=== PATIENT | male | born 1995 | race Two or more races ===

== ENCOUNTER 2019-12-09 11:39 | Emergency (ER) | payer SELFPAY ==
[~2019-12-09] VITALS: Ht 180.3 cm; Wt 63.0 kg
[2019-12-09] MEDS ORDERED: KETOROLAC 30MG/ML VIAL IV STA (12:24)
[2019-12-09 13:01] VITALS: BP 123/67
== END 2019-12-09 13:41 | disposition home or self-care (01) ==
LOC: ER 11:39
DX: K08.89 Other specified disorders of teeth and supporting structures (principal); F12.10 Cannabis abuse, uncomplicated
CPT/HCPCS: 96374; 99283; J1885

== ENCOUNTER 2019-12-09 14:38 | Inpatient (IN) | payer MEDICAID, OTHER ==
[~2019-12-09] VITALS: Ht 172.7 cm; Wt 74.8 kg
[2019-12-09] MEDS ORDERED: DIPHENHYDRAMINE 50MG/ML VIAL IM STA (15:40)
[2019-12-09] MEDS ORDERED: HALOPERIDOL LACTATE 5MG/ML VIAL IM STA (15:40)
[2019-12-09 16:13] LABS: BASOPHILS % 0.5 % (0.0-2.0); EOSINOPHILS % 0.1 % (0.0-5.0); HEMATOCRIT. 47.4 % (42.0-52.0); HEMOGLOBIN. 16.2 g/dL (14.0-18.0); LYMPHOCYTES % 17.1 % (20.0-50.0); MEAN CORPUSCULAR HEMOGLOBIN 27.5 pg (28.0-32.0); MEAN CORPUSCULAR VOLUME 80.7 fL (80.0-94.0); MONOCYTES % 8.2 % (2.0-8.0); NEUTROPHILS % 74.1 % (40.0-76.0); PLATELET 212 x1000/uL (130-400); RED BLOOD CELL COUNT 5.88 mill/uL (4.7-6.1); RED CELL DISTRIBUTION WIDTH 13.5 % (11.6-14.6)
[2019-12-09 16:18] LABS: CHLORIDE 103 mEq/L (98-107)
[2019-12-09 16:18] LABS: BG BASE EXCESS -0.3 mmol/L (-2.0-2.0); BG CARBOXYHEMOGLOBIN 0.1 % (0.5-1.5); BG DEOXYHEMOGLOBIN 3.5 % (0.0-5.0); BG FRACTION INSPIRED OXYGEN 21; BG HCO3 ACT 23.8 mmol/L (22.0-26.0); BG METHEMOGLOBIN 0.2 % (0.0-1.5); BG OXYGEN SATURATION 96.5 % (92.0-98.5); BG OXYHEMOGLOBIN 96.2 % (94.0-97.0); BG PCO2 37.7 mmHg (35.0-45.0); BG PH 7.419 (7.350-7.450); BG SAMPLE SITE RIGHT RADIAL; BG TOTAL HEMOGLOBIN 15.7 g/dL (12.0-18.0); BG VENT MODE ROOM AIR
[2019-12-09 16:23] LABS: ETHANOL BLOOD < 10 mg/dL
[2019-12-09 16:50] LABS: CLARITY URINE CLEAR (CLEAR); COLOR URINE YELLOW (YELLOW); KETONES URINE NEGATIVE (NEGATIVE); LEUKOCYTE ESTERASE URINE NEGATIVE (NEGATIVE); NITRITE URINE NEGATIVE (NEGATIVE); OCCULT BLOOD URINE 2+ (NEGATIVE); PH URINE 7.5 (4.5-8.0); PROTEIN URINE NEGATIVE (NEGATIVE); SPECIFIC GRAVITY URINE 1.011 (1.005-1.030)
[2019-12-09 17:18] LABS: *AMPHETAMINES SCREEN URINE NEGATIVE (NEGATIVE); *BARBITURATES SCREEN URINE NEGATIVE (NEGATIVE)
[2019-12-09 17:19] LABS: *BENZODIAZEPINES SCREEN URINE NEGATIVE (NEGATIVE); *COCAINE SCREEN URINE NEGATIVE (NEGATIVE); CANNABINOID URINE SCREEN NEGATIVE (NEGATIVE); METHADONE URINE SCREEN NEGATIVE (NEGATIVE); OPIATES URINE SCREEN NEGATIVE (NEGATIVE); PHENCYCLIDINE URINE SCREEN NEGATIVE (NEGATIVE)
[2019-12-09] MEDS ORDERED: SODIUM CHLORIDE 0.9% 1,000 ML IV ONE (22:16)
[2019-12-09 23:19] LABS: CREATINE KINASE 3368 IU/L (39-308)
[2019-12-10] MEDS ORDERED: SODIUM CHLORIDE 0.9% 1,000 ML IV ONE ×3 (00:07→07:14)
[2019-12-10 05:53] LABS: CREATINE KINASE 6755 IU/L (39-308)
[2019-12-10] MEDS ORDERED: HALOPERIDOL LACTATE 5MG/ML VIAL IM ONE (07:15)
[2019-12-10] MEDS ORDERED: DIPHENHYDRAMINE 50MG/ML VIAL IV ONE (07:15)
[2019-12-10] MEDS ORDERED: LORAZEPAM 2MG/ML CPJ IV ONE (09:30)
[2019-12-10] MEDS: SODIUM CHLORIDE 0.9% 1,000 ML IV SCH ×2 (11:00→15:51)
[2019-12-10] MEDS ORDERED: ACETAMINOPHEN 325MG TABLET PO PRN (11:00)
[2019-12-10] MEDS ORDERED: ONDANSETRON HCL 4MG/2ML INJ IV PRN (11:00)
[2019-12-10] MEDS ORDERED: CLONIDINE 0.1MG TABLET PO PRN (11:00)
[2019-12-10] MEDS ORDERED: LORAZEPAM 2MG/ML CPJ IV PRN (11:00)
[2019-12-10] MEDS ORDERED: MAGNESIUM/ALUMINUM HYDROXIDE/SIMETHICONE 30ML UDC PO PRN (11:00)
[2019-12-10 20:49] LABS: CREATINE KINASE 4638 IU/L (39-308)
[2019-12-10 22:00] VITALS: BP 121/61
[2019-12-11 00:16] VITALS: BP 120/65
[2019-12-11 03:07] VITALS: BP 134/66
[2019-12-11 04:00] VITALS: BP 122/74
[2019-12-11] MEDS: SODIUM CHLORIDE 0.9% 1,000 ML IV SCH (07:00)
[2019-12-11 08:00] VITALS: BP 131/77
[2019-12-11] MEDS ORDERED: PNEUMOCOCCAL 23-VAL P-SAC VAC 0.5 ML IM ONE (08:00)
[2019-12-11] MEDS ORDERED: OLANZAPINE 10MG TABLET PO SCH (09:30)
[2019-12-11] MEDS ORDERED: HALOPERIDOL LACTATE 5MG/ML VIAL IM PRN (09:30)
[2019-12-11] MEDS ORDERED: INFLUENZA VIRUS VACCINE(AFLURIA) 0.5ML SYR IM ONE (10:00)
[2019-12-11] MEDS ORDERED: CEFAZOLIN 1000MG PREMIX 50 ML IV SCH (11:00)
[2019-12-11] MEDS ORDERED: HALOPERIDOL LACTATE 5MG/ML VIAL IM NR (12:15)
== END 2019-12-11 16:15 | DRG 52 ==
LOC: ER 14:38 → EDBEDREQSVC 12-10 06:40 → EDBEDREQ 12-10 09:26 → ENRESERV 12-10 20:15 → 7WST 12-10 21:24
PROVIDERS: ADMIT Hospitalist; ATTEND Hospitalist
DX: G93.40 Encephalopathy, unspecified (principal); F20.9 Schizophrenia, unspecified; M62.82 Rhabdomyolysis; K08.89 Other specified disorders of teeth and supporting structures; R00.0 Tachycardia, unspecified; F29 Unspecified psychosis not due to a substance or known physiological condition; F32.9 Major depressive disorder, single episode, unspecified; Z59.0 Homelessness; Z91.5 Personal history of self-harm; Z78.1 Physical restraint status; Z56.0 Unemployment, unspecified
CPT/HCPCS: 36415; 36600; 80053; 80305; 80307; 80320; 80329; 81003; 82375; 82550; 82805; 85025; 90686; 90732; 99285; J0690; J1200; J1630; J2060; J7030; G0480

== ENCOUNTER 2019-12-11 17:13 | Inpatient (IN) | payer SELFPAY ==
[~2019-12-11] VITALS: Ht 172.7 cm; Wt 74.8 kg
[2019-12-11] MEDS ORDERED: SODIUM CHLORIDE 0.9% 1,000 ML IV ONE (17:28)
[2019-12-11 17:54] LABS: BASOPHILS % 0.8 % (0.0-2.0); CHLORIDE 103 mEq/L (98-107); EOSINOPHILS % 1.8 % (0.0-5.0); HEMATOCRIT. 44.4 % (42.0-52.0); HEMOGLOBIN. 15.1 g/dL (14.0-18.0); LYMPHOCYTES % 33.4 % (20.0-50.0); MEAN CORPUSCULAR HEMOGLOBIN 27.1 pg (28.0-32.0); MEAN CORPUSCULAR VOLUME 79.5 fL (80.0-94.0); MONOCYTES % 11.4 % (2.0-8.0); NEUTROPHILS % 52.6 % (40.0-76.0); PLATELET 197 x1000/uL (130-400); RED BLOOD CELL COUNT 5.58 mill/uL (4.7-6.1); RED CELL DISTRIBUTION WIDTH 13.2 % (11.6-14.6)
[2019-12-11 17:57] LABS: PROTHROMBIN TIME 10.7 sec (9.6-11.0)
[2019-12-11 17:58] LABS: ETHANOL BLOOD < 10 mg/dL
[2019-12-11 18:16] LABS: CREATINE KINASE 4914 IU/L (39-308)
[2019-12-11 18:38] LABS: *AMPHETAMINES SCREEN URINE NEGATIVE (NEGATIVE); *BARBITURATES SCREEN URINE NEGATIVE (NEGATIVE); *BENZODIAZEPINES SCREEN URINE NEGATIVE (NEGATIVE); *COCAINE SCREEN URINE NEGATIVE (NEGATIVE); CANNABINOID URINE SCREEN NEGATIVE (NEGATIVE); METHADONE URINE SCREEN NEGATIVE (NEGATIVE); PHENCYCLIDINE URINE SCREEN NEGATIVE (NEGATIVE)
[2019-12-11 20:30] VITALS: BP 96/56
[2019-12-11] MEDS ORDERED: ACETAMINOPHEN 325MG TABLET PO PRN (23:45)
[2019-12-11] MEDS ORDERED: IOHEXOL-300 100 ML BOTTLE ONE (23:51)
[2019-12-12] VITALS: BP 100/60
[2019-12-12] MEDS ORDERED: GUAIFENESIN 200MG/10ML SUGAR FREE UDC PO PRN (00:30)
[2019-12-12] MEDS ORDERED: HYDROCODONE/ACETAMINOPHEN 10/325MG TABLET PO PRN (00:30)
[2019-12-12] MEDS ORDERED: IPRATROPIUM/ALBUTEROL 0.5-3(2.5)MG/3ML NEB HHN PRN (00:30)
[2019-12-12] MEDS ORDERED: DIPHENHYDRAMINE 50MG/ML VIAL IV PRN (00:30)
[2019-12-12] MEDS ORDERED: MAGNESIUM/ALUMINUM HYDROXIDE/SIMETHICONE 30ML UDC PO PRN (00:30)
[2019-12-12] MEDS ORDERED: MORPHINE SULFATE 2 MG/ML CPJ (NOT FOR IM USE) IV PRN (00:30)
[2019-12-12] MEDS ORDERED: CLONIDINE 0.1MG TABLET PO PRN (00:30)
[2019-12-12] MEDS ORDERED: HYDRALAZINE 20MG/ML VIAL IV PRN (00:30)
[2019-12-12] MEDS ORDERED: ONDANSETRON HCL 4MG/2ML INJ IV PRN (00:30)
[2019-12-12] MEDS ORDERED: DOCUSATE SODIUM 100MG CAPSULE PO PRN (00:30)
[2019-12-12] MEDS: LORAZEPAM 2MG/ML CPJ IV PRN ×3 (01:25→21:50)
[2019-12-12 04:00] VITALS: BP 96/57
[2019-12-12] MEDS: SODIUM CHLORIDE 0.45% 1,000 ML IV SCH ×3 (06:56→21:30)
[2019-12-12] MEDS: SODIUM CHLORIDE 0.9% INJ 3ML FLUSH IVF SCH ×2 (06:56→22:00)
[2019-12-12 08:00] VITALS: BP 110/69
[2019-12-12] MEDS: ENOXAPARIN 40MG/0.4ML SYR SUBCUT SCH (09:00)
[2019-12-12 12:00] VITALS: BP 125/74
[2019-12-12 16:00] VITALS: BP 129/67
[2019-12-12 20:00] VITALS: BP 126/79
[2019-12-12] MEDS: OLANZAPINE 5MG TABLET PO SCH (21:45)
[2019-12-13] VITALS: BP 122/69
[2019-12-13 04:00] VITALS: BP 109/62
[2019-12-13] MEDS: LORAZEPAM 2MG/ML CPJ IV PRN (05:01)
[2019-12-13] MEDS: SODIUM CHLORIDE 0.9% INJ 3ML FLUSH IVF SCH ×2 (05:09→22:00)
[2019-12-13 06:00] LABS: BASOPHILS % 0.6 % (0.0-2.0); EOSINOPHILS % 3.2 % (0.0-5.0); HEMATOCRIT. 43.8 % (42.0-52.0); HEMOGLOBIN. 15.1 g/dL (14.0-18.0); MEAN CORPUSCULAR HEMOGLOBIN 27.6 pg (28.0-32.0); MEAN CORPUSCULAR VOLUME 79.8 fL (80.0-94.0); MEAN PLATELET VOLUME 8.1 fl (7.4-10.4); MONOCYTES % 9.7 % (2.0-8.0); NEUTROPHILS % 31.5 % (40.0-76.0); PLATELET 190 x1000/uL (130-400); RED BLOOD CELL COUNT 5.49 mill/uL (4.7-6.1); RED CELL DISTRIBUTION WIDTH 13.2 % (11.6-14.6)
[2019-12-13 06:49] LABS: CHLORIDE 105 mEq/L (98-107)
[2019-12-13 07:00] LABS: CREATINE KINASE MB FRACTION 1.3 ng/mL (0.5-3.6)
[2019-12-13] MEDS: SODIUM CHLORIDE 0.45% 1,000 ML IV SCH ×2 (07:06→17:30)
[2019-12-13 07:09] LABS: CREATINE KINASE 1465 IU/L (39-308)
[2019-12-13 07:44] VITALS: BP 130/66
[2019-12-13] MEDS: OLANZAPINE 5MG TABLET PO SCH (09:00)
[2019-12-13] MEDS: ENOXAPARIN 40MG/0.4ML SYR SUBCUT SCH (09:00)
[2019-12-13 15:00] LABS: CREATINE KINASE MB FRACTION 1.1 ng/mL (0.5-3.6)
[2019-12-13 18:07] VITALS: BP 128/68
[2019-12-13 20:00] VITALS: BP 125/73
[2019-12-14] MEDS: SODIUM CHLORIDE 0.45% 1,000 ML IV SCH ×3 (03:30→23:30)
[2019-12-14] MEDS: SODIUM CHLORIDE 0.9% INJ 3ML FLUSH IVF SCH ×2 (06:00→21:27)
[2019-12-14] MEDS: ENOXAPARIN 40MG/0.4ML SYR SUBCUT SCH (08:35)
[2019-12-14] MEDS: OLANZAPINE 5MG TABLET PO SCH (09:04)
[2019-12-14] MEDS ORDERED: OLANZAPINE 5MG TABLET PO NR (17:15)
[2019-12-14] MEDS: LORAZEPAM 1MG TABLET PO PRN (20:24)
[2019-12-15] MEDS: LORAZEPAM 1MG TABLET PO PRN ×3 (02:13→17:30)
[2019-12-15] MEDS: SODIUM CHLORIDE 0.9% INJ 3ML FLUSH IVF SCH ×3 (05:10→22:00)
[2019-12-15 08:00] VITALS: BP 121/76
[2019-12-15] MEDS: OLANZAPINE 5MG TABLET PO SCH (08:36)
[2019-12-15] MEDS: ENOXAPARIN 40MG/0.4ML SYR SUBCUT SCH (08:36)
[2019-12-15] MEDS: SODIUM CHLORIDE 0.45% 1,000 ML IV SCH ×2 (09:30→19:30)
[2019-12-15 12:00] VITALS: BP 144/90
[2019-12-15 16:00] VITALS: BP 138/88
[2019-12-15 20:00] VITALS: BP 118/56
[2019-12-16] VITALS: BP 113/67
[2019-12-16 04:00] VITALS: BP 109/64
[2019-12-16 08:00] VITALS: BP 129/79
[2019-12-16 08:29] LABS: OPIATES URINE SCREEN NEGATIVE (NEGATIVE)
[2019-12-16] MEDS: OLANZAPINE 5MG TABLET PO SCH (08:53)
[2019-12-16] MEDS: ENOXAPARIN 40MG/0.4ML SYR SUBCUT SCH (09:00)
[2019-12-16] MEDS: LORAZEPAM 1MG TABLET PO PRN ×2 (11:36→18:53)
[2019-12-16] MEDS ORDERED: DIPHENHYDRAMINE 25MG CAPSULE PO PRN (12:45)
[2019-12-16 16:00] VITALS: BP 138/84
[2019-12-16 19:33] VITALS: BP 129/77
[2019-12-17] VITALS: BP 115/80
[2019-12-17] MEDS: LORAZEPAM 1MG TABLET PO PRN ×3 (00:27→20:15)
[2019-12-17 04:00] VITALS: BP 125/83
[2019-12-17 05:18] LABS: CHLORIDE 106 mEq/L (98-107)
[2019-12-17 08:00] VITALS: BP 108/68
[2019-12-17] MEDS: OLANZAPINE 5MG TABLET PO SCH ×2 (09:00→09:59)
[2019-12-17] MEDS: ENOXAPARIN 40MG/0.4ML SYR SUBCUT SCH (10:00)
[2019-12-17 12:00] VITALS: BP 111/77
[2019-12-17 16:00] VITALS: BP 128/73
[2019-12-17 19:59] VITALS: BP 126/81
[2019-12-18] VITALS: BP 115/81
[2019-12-18] MEDS: LORAZEPAM 1MG TABLET PO PRN ×2 (01:04→17:29)
[2019-12-18 04:00] VITALS: BP 115/78
[2019-12-18 08:00] VITALS: BP 111/76
[2019-12-18] MEDS: ENOXAPARIN 40MG/0.4ML SYR SUBCUT SCH (08:53)
[2019-12-18] MEDS: OLANZAPINE 5MG TABLET PO SCH (09:00)
[2019-12-18 11:54] VITALS: BP 103/61
[2019-12-19 05:08] LABS: HIV SCREEN 4G Non Reactive (Non Reactive)
== END 2019-12-18 17:43 | disposition left against medical advice (07) | DRG 351 ==
LOC: ER 17:13 → 7WST 19:01 → ENRESERV 19:08 → CANRESERV 19:08 → ENRESERV 20:23
PROVIDERS: ADMIT Internal Medicine; ATTEND Internal Medicine
DX: M62.82 Rhabdomyolysis (principal); F23 Brief psychotic disorder; Z53.29 Procedure and treatment not carried out because of patient's decision for other reasons; Z79.899 Other long term (current) drug therapy; Z59.0 Homelessness; Z91.5 Personal history of self-harm
CPT/HCPCS: 36415; 70491; 80048; 80053; 80305; 80320; 82140; 82550; 82553; 85025; 87389; 96374; 99285; J1200; J1650; J2060; J7030; Q9967; G0480